=== PATIENT | female | born 1970 | race Caucasian/White ===

== ENCOUNTER 2018-08-19 17:11 | Outpatient (REF) | payer OTHER, SELFPAY ==
[2018-08-19 19:39] LABS: Anion Gap 9.5 mmol/L (3-11); BUN 24 mg/dL (7-18); CO2 28.5 mmol/L (21.0-32.0); CREATININE 0.93 mg/dL (0.55-1.02); Chloride 100 mmol/L (98-107); Glucose 90 mg/dL (70-100); Potassium 3.2 mmol/L (3.5-5.1); Sodium 138 mmol/L (136-145); TSH 3.22 uIU/mL (0.358-3.74)
== END 2018-08-19 17:31 ==
LOC: LBN 17:11
PROVIDERS: PCP Internal Medicine; Visit Provider Internal Medicine
DX: I10 Essential (primary) hypertension (principal); Z00.00 Encounter for general adult medical examination without abnormal findings
CPT/HCPCS: 80048; 84443

== ENCOUNTER 2019-08-27 09:27 | Outpatient (REF) | payer BC, SELFPAY ==
[2019-08-27 20:32] LABS: Anion Gap 8.9 mmol/L (3-11); BUN 31 mg/dL (7-18); CO2 27.1 mmol/L (21.0-32.0); CREATININE 1.25 mg/dL (0.55-1.02); Calcium 9.2 mg/dL (8.5-10.1); Calculated LDL 164 mg/dL (<100); Chloride 104 mmol/L (98-107); Cholesterol 234 mg/dL (<200); Estimated GFR 45.36 (mL/min/1.73m2); Glucose 96 mg/dL (74-106); HDL Cholesterol 59 mg/dL (40-60); Potassium 4.8 mmol/L (3.5-5.1); Sodium 140 mmol/L (136-145); Triglyceride 56 mg/dL (<150)
== END 2019-08-27 09:47 ==
LOC: NCHCN 09:27
PROVIDERS: PCP Internal Medicine; Visit Provider Internal Medicine
DX: Z00.00 Encounter for general adult medical examination without abnormal findings (principal); E78.5 Hyperlipidemia, unspecified; I10 Essential (primary) hypertension
CPT/HCPCS: 80048; 80061

== ENCOUNTER 2021-10-06 16:41 | Outpatient (REF) | payer BC, SELFPAY ==
[2021-10-06 19:41] LABS: Calculated LDL 118 mg/dL (<100); Cholesterol 204 mg/dL (<200); Glucose 103 mg/dL (74-106); HDL Cholesterol 70 mg/dL (40-60); TSH 2.56 uIU/mL (0.36-3.74); Triglyceride 81 mg/dL (<150)
[2021-10-10 11:30] LABS: Hepatitis C Ab w Rflx HCV PCR Negative (Negative)
== END 2021-10-06 16:42 | disposition home or self-care (01) ==
LOC: NCHCN 16:41
PROVIDERS: PCP Internal Medicine; Visit Provider Internal Medicine
DX: Z00.00 Encounter for general adult medical examination without abnormal findings (principal); R61 Generalized hyperhidrosis; Z13.1 Encounter for screening for diabetes mellitus; Z13.29 Encounter for screening for other suspected endocrine disorder; Z11.59 Encounter for screening for other viral diseases; Z13.220 Encounter for screening for lipoid disorders
CPT/HCPCS: 80061; 82947; 86803; 84443

== ENCOUNTER 2023-05-10 16:58 | Outpatient (REF) | payer BC, SELFPAY ==
[2023-05-10 19:51] LABS: Anion Gap 7.9 mmol/L (3-11); BUN 30 mg/dL (7-18); CO2 27.1 mmol/L (21.0-32.0); CREATININE 1.1 mg/dL (0.55-1.02); Calcium 9.5 mg/dL (8.5-10.1); Calculated LDL 141 mg/dL (<100); Chloride 105 mmol/L (98-107); Cholesterol 220 mg/dL (<200); Estimated GFR 59.71 (mL/min/1.73m2); Glucose 107 mg/dL (74-106); HDL Cholesterol 65 mg/dL (40-60); Potassium 4.7 mmol/L (3.5-5.1); Sodium 140 mmol/L (136-145); Triglyceride 71 mg/dL (<150)
== END 2023-05-10 16:59 | disposition home or self-care (01) ==
LOC: NCHCN 16:58
PROVIDERS: PCP Internal Medicine; Visit Provider Internal Medicine
DX: I10 Essential (primary) hypertension (principal)
CPT/HCPCS: 80048; 80061

== ENCOUNTER 2024-05-08 17:44 | Outpatient (REF) | payer BC, SELFPAY ==
[2024-05-08 19:14] LABS: Anion Gap 8.7 mmol/L (3-11); BUN 24 mg/dL (7-18); CO2 27.3 mmol/L (21.0-32.0); Calcium 9.3 mg/dL (8.5-10.1); Chloride 107 mmol/L (98-107); Estimated GFR 66.53 (mL/min/1.73m2); Glucose 105 mg/dL (74-106); Potassium 3.8 mmol/L (3.5-5.1); Sodium 143 mmol/L (136-145)
[2024-05-09 18:48] LABS: HIV-1/2 Ag & Ab Screen Negative (Negative)
== END 2024-05-08 17:45 | disposition home or self-care (01) ==
LOC: NCHCN 17:44
PROVIDERS: PCP Internal Medicine; Visit Provider Internal Medicine
DX: I10 Essential (primary) hypertension (principal); Z11.4 Encounter for screening for human immunodeficiency virus [HIV]
CPT/HCPCS: 80048; 87389

== ENCOUNTER 2024-07-03 01:06 | Outpatient (CLI) | payer BC, SELFPAY ==
--- NOTE | 2024-07-03 | DI.DEXA_ITS ---
Exam(s) XR DEXA BONE DENSITY W/WO ADEEL EXAM: XR DEXA BONE DENSITY W/WO ADEEL CLINICAL HISTORY: POSTMENOPAUSAL OSTEOPOROSIS, M81.0, AGE RELATED OSTEOPOROSIS W/O TECHNIQUE: [employer] C densitometer analysis of left hip, lumbar spine and left forearm. Lat eral survey image of the thoracic and lumbar spine. COMPARISON: No exams were available for comparison FINDINGS: Lateral view of the thoracic and lumbar spine shows no evidence of compression fractures. Bone mineral density measurements of the lumbar spine correspond to a total T-score of -1.1, in the mildly osteopenic range. Bone mineral density measurements of the left hip correspond to a total T-score of -0.4. The femora l neck T-score is 0.7, in the normal range. Theleft forearm bone mineral density measurements correspond to a T-score of the distal 3rd of 0.4, in the normal range.. IMPRESSION: Normal bone mineral density of the hip and forearm. Mild osteopenia of the spine.
== END 2024-07-03 01:26 ==
LOC: DI 01:06
PROVIDERS: PCP Internal Medicine; Visit Provider Internal Medicine
DX: Z13.820 Encounter for screening for osteoporosis (principal)
CPT/HCPCS: 77080